=== PATIENT | male | born 1965 | race Caucasian/White ===

== ENCOUNTER 2024-11-05 16:57 | Emergency (ER) | payer BC, SELFPAY ==
[2024-11-05 17:00] VITALS: BP 144/88
[2024-11-05 18:24] VITALS: BMI 29.3
[2024-11-05 19:45] LABS: % Basophils 0.4 % (0-2); % Eosinophils 1.6 % (0-6); % Immature Granulocytes 0.5 % (0-0.5); % Lymphocytes 34.5 % (20.5-51.1); % Monocytes 8.6 % (1.7-9.3); % Neutrophils 54.4 % (42.2-75.2); Absolute Eosinophils 0.1 10^3/uL (0-0.7); Absolute Monocytes 0.5 10^3/uL (0.1-0.6); Absolute Neutrophils 3.1 10^3/uL (1.4-6.5); Hematocrit 43.1 % (39.0-52.0); Hemoglobin 15.2 g/dL (13.0-18.0); Mean Corp Hgb Conc. 35.3 g/dL (33.0-37.0); Mean Corpuscular Hgb 28.6 pg (27.0-31.0); Mean Corpuscular Volume 81.2 fL (80.0-94.0); Mean Platelet Volume 9.9 fL (7.4-10.4); Nucleated Red Blood Cells % 0 % (-); Platelet Count 190 10^3/uL (130-400); Red Blood Cell Count 5.31 10^6/uL (4.70-6.10); Red Cell Dist. Width 12.9 % (11.5-14.5); White Blood Cell Count 5.7 10^3/uL (4.8-10.8)
--- NOTE | 2024-11-05 19:57 | ED.GENMED ---
History of Present Illness
General
Chief Complaint: DVT/Possible Blood Clot
Source: patient
Exam Limitations: none
Time Seen by Provider: 11/05/24 19:16
Nursing documentation reviewed up to this point in time: agreed with
History of Present Illness
History of Present Illness:
Patient is a 59-year-old male who presents the emergency department for evaluation of bruising of his left arm. Patient states he donated platelets on 10/27/24 prior to onset of symptoms. He states that during platelet donation he did start to have
pain near injection site however the needle was not removed until 2.5 hours in. He reports that over the following days he noticed significant bruising in his left arm which is continued to expand.
He does report mild pain although denies any numbness/tingling in the left upper extremity. He denies any fevers or chills. He denies any limitations in his range of motion.
Patient is not on any blood thinners. He has no known bleeding or clotting disorders.
He states that he has donated platelets in the past and has never had significant bruising following this. However�he also states he has never experienced pain similar to what he did during this past platelet donation.
Review of Systems
Review of Systems
Allergies reviewed?: Yes
All Other Systems: ROS reviewed and negative except as documented in HPI and ROS
Phy Exam
Physical Exam
Physical Exam:
Vitals: Mildly hypertensive, otherwise vital signs stable. Afebrile
General: Patient is well appearing, no acute distress
Skin: Large ecchymosis of left arm at volar aspect extending from just proximal to left elbow down to left wrist with mild tenderness. No palpable hematoma or areas of fluctuance. No overlying warmth or lymphangitic streaking.
Head: Normocephalic, atraumatic
Throat: Protecting airway
Neck: Normal ROM, no cervical spine tenderness
Cardiac: Regular rate
Pulm: No apparent respiratory distress
Abdomen: Nondistended
Extremities: Ecchymoses to left upper extremity as described above. Patient has full range of motion in left elbow and left wrist without pain. No joint effusions. Capillary refill of LUE WNL. 2+ palpable left radial pulse
Neuro: Grossly intact
Psychiatric: Normal affect.
Course
Orders/Labs/Results
Orders:
Orders
11/05/24 16:59
US Arms, Left [US Periph Venous UPPER Ext LT] Urgent
Comment: pt was told to go to er for u/s
Reason For Exam: left arm discomfort and bruising from given bld
11/05/24 19:38
Basic Metabolic Panel Urgent
Complete Blood Count/With Diff Urgent
11/05/24 19:38
11/05/24 19:38
Vital Signs
Initial and Last Documented VS:
Initial Vital Signs
Temp Pulse Resp BP Pulse Ox
98.0 F 88 18 144/88 97
11/05/24 17:00 11/05/24 17:00 11/05/24 17:00 11/05/24 17:00 11/05/24 17:00
Last Documented Vital Signs
Temp Pulse Resp BP Pulse Ox
98.0 F 88 18 144/88 97
11/05/24 17:00 11/05/24 17:00 11/05/24 17:00 11/05/24 17:00 11/05/24 18:24
MDM/Problems Addressed
Differential Diagnosis Includes:
Not limited to: Ecchymoses, hematoma, deep vein thrombosis, thrombocytopenia, abscess, etc.
MDM/Problems Addressed:
59 year old male presenting with significant ecchymosis and mild discomfort of left arm following platelet donation just over 1 week ago. No reports of fevers, numbness/tingling in LUE, or limited ROM. Vitals and physical exam as above.
Large ecchymosis of left arm without palpable hematoma or area of fluctuance. No overlying warmth. No joint effusion. LUE neurovascularly intact with normal cap refill.
US of LUE reveals no evidence of DVT. Basic labs without abnormalities. Platelets and hemoglobin normal. No evidence of current infectious process. Stable for discharge home with supportive care at home including warm compress, elevation, PCP f/u.
Patient comfortable with plan.
Chronic conditions affecting care:
N/A
Acute Exacerbation and/or Progression of Chronic Illness:
N/A
*Radiology
Radiology exam reviewed: radiology read reviewed
*Pulse Oximetry
Patient hypoxic: no
*EKG
Interpreted by ED Provider?: NA
*Mixing Supervisor Interpretation
Rate: Mixing Supervisor- N/A
*Critical Care Note
Total Time (30-74mins, 75-104mins- exclusive of procedures): Not Applicable
Patient Management
Escalation/DeEscalation of care consider admission/obs:
Admit not indicated
ED Attending Note
-
Portions of this chart may have been created with voice recognition software.� Occasional wrong word or��sound alike� substitutions may have occurred due to the inherent limitations of voice recognition software.
Discharge Plan
Departure
Patient Disposition: Home (Routine Discharge)
Date of Disposition: 11/05/24
Time of Disposition: 20:21
Patient with high blood pressure during this ER visit?: Yes
Condition: Good
Covid-19: Not Applicable
Discharge Problem:
Traumatic ecchymosis of left forearm
Instructions: BLOOD PRESSURE, Hematoma
Referrals:
Sereg Uribe MD [Family Provider, Family Practice] - Follow up in 5-7 days
Activity Restrictions/Additional Instructions:
RETURN TO THE EMERGENCY DEPARTMENT WITH ANY FEVERS, CHILLS, WORSENING PAIN OR SWELLING IN LEFT ARM, NUMBNESS/TINGLING IN LEFT UPPER EXTREMITY, SIGNIFICANT REDNESS OR RED STREAKING AWAY FROM WOUND, OR ANY OTHER CONCERNS
- As discussed�your lab work and ultrasound showed no acute abnormalities in the emergency department. There is no evidence of a blood clot today.
- You should continue to elevate your left arm and apply warm compresses. You can wrap the affected arm with an [place] bandage for compression.
- Take Tylenol and/or Motrin as needed for pain.
- Follow-up with your primary care within the week to ensure symptoms are improving/for further evaluation.
Monitor your symptoms closely and return to the emergency department with any acute worsening/new symptoms or any other concerns
Interventions
Interventions:
*Risk Screen - Suicide Last Done: 11/05/24 18:24
*General Assessment Last Done: 11/05/24 18:24
*Neglect/Abuse Screening Last Done: 11/05/24 18:24
*ED COVID-19 Vaccine History Last Done: 11/05/24 18:24
*Nursing Disposition Last Done: 11/05/24 20:33
ED- Cardiac Assessment Last Done: 11/05/24 18:24
ED- Pulmonary Assessment Last Done: 11/05/24 18:24
ED-Peripheral Vascular Assessment Last Done: 11/05/24 18:24
ED-Skin Assessment Last Done: 11/05/24 18:24
Discharge Date and Time
Discharge Date/Time: 11/05/24 20:33
Print Language: [id number]
[2024-11-05 20:06] LABS: Blood Urea Nitrogen 19 mg/dl (9-20); Calcium 9.7 mg/dl (8.4-10.2); Carbon Dioxide 27 mmol/L (22-30); Chloride 106 mmol/L (98-107); Estimated Creatinine Clearance 96 ml/min; Glucose 97 mg/dl (70-99); Potassium 4.7 mmol/L (3.5-5.1); Sodium 139 mmol/L (135-145); eGFR > 60.00
== END 2024-11-05 20:33 | disposition home or self-care (01) ==
LOC: EMR 16:57
PROVIDERS: Physician Assistant; EMERGENCY PHYSICIAN Emergency Medicine; FAMILY PHYSICIAN Family Medicine
DX: S50.12XA Contusion of left forearm, initial encounter (principal); W46.0XXA Contact with hypodermic needle, initial encounter
CPT/HCPCS: 99284; 80048; 85025; 93971